=== PATIENT | female | born 1995 | race Two or more races ===

== ENCOUNTER 2025-03-03 14:14 | Emergency (ER) | payer OTHER ==
[~2025-03-03] VITALS: Ht 152.4 cm; Wt 66.7 kg
[2025-03-03] MEDS ORDERED: AMOX-CLAV 875-1 EACH PO ×2 (15:31→16:06)
[2025-03-03] MEDS ORDERED: CEFTRIAXONE SODIUM 1,000 MG VIAL IM STA (15:32)
== END 2025-03-03 16:15 | disposition home or self-care (01) ==
LOC: ER 14:35
DX: S05.12XA Contusion of eyeball and orbital tissues, left eye, initial encounter (principal); W55.03XA Scratched by cat, initial encounter; Y93.89 Activity, other specified; Y92.89 Other specified places as the place of occurrence of the external cause; Y99.9 Unspecified external cause status